=== PATIENT | female | born 1985 | race Caucasian/White ===

== ENCOUNTER 2019-01-02 15:03 | Emergency (ER) | payer MEDICAID ==
--- NOTE | 2019-01-02 15:17 | EDPHY ---
H & P Time Seen by Provider: 01/02/19 15:13 HPI/ROS: Chief complaint. Stroke activation HPI. 33-year-old female presents emergency department with complaint of headache for 2 days that she feels somewhat different than her usual migraines. She says it is different in severity. 1 hr ago she developed right throat numbness and right arm numbness. Maybe she feels that she has some right arm weakness. She also had some left lower extremity numbness but not now. She says she has been short of breath 3 days. She has had right-sided chest pain sharp and sometimes pressure for 3-4 weeks. No unusual leg pain or swelling. No leg weakness. No abdominal pain. ROS 10 systems were reviewed and negative with the exception of the elements mentioned in the history of present illness Past Medical/Surgical History: Migraines, WPW Social History: , nonsmoker, no alcohol Smoking Status: Former smoker Physical Exam: General Appearance: Female mild distress vital signs are stable Eyes: Pupils equal and round no pallor or injection. ENT, Mouth: Mucous membranes are moist. Respiratory: There are no retractions, lungs are clear to auscultation. Cardiovascular: Regular rate and rhythm. Gastrointestinal: Abdomen is soft and nontender, no masses, bowel sounds normal. Neurological: Awake and alert, sensory and motor exams grossly normal. Speech is normal. Cranial nerves intact. She does however have subjective decreased sensation to the right lower face. Subjective sensation decreased to the right arm. There is no pronator drift. Normal [id number]. No weakness to the legs and patient can hold each leg off the bed for 10 sec. No subjective sensory change to either leg Skin: Warm and dry, no rashes. Musculoskeletal: Neck is supple nontender. Extremities symmetrical, full range of motion. Psychiatric: Patient is oriented X 3, there is no agitation. Constitutional: Initial Vital Signs Temperature (C) 36.7 C 01/02/19 15:07 Heart Rate 84 01/02/19 15:07 Respiratory Rate 18 01/02/19 15:07 Blood Pressure 146/79 H 01/02/19 15:07 O2 Sat (%) 98 01/02/19 15:07 O2 Delivery Mode Room Air Allergies/Adverse Reactions: No Known Allergies Allergy (Verified 01/02/19 15:07) Home Medications: Medication Instructions Recorded Exedrin 01/02/19 Medical Decision Making - Diagnostics EKG Interpretation: EKG interpreted by me shows normal sinus rhythm normal interval and axis. QRS is normal there is no significant ST elevation or depression. No arrhythmia. The rate is 69 Imaging Results: Imaging Impressions Head CT 01/02/19 15:16 Impression: 1. No significant intracranial abnormality seen. If symptoms worsen, additional imaging may be necessary. Findings discussed with Monica Moody M.D. at 15:31 hour, 01/02/2019. Head CTA 01/02/19 15:44 Impression: Normal. Findings and recommendations discussed with MONICA MOODY at 4:37 PM hour, 01/02. Final report concurs with initial preliminary interpretation. Neck CTA 01/02/19 15:44 Impression: Normal. Note: All stenoses are calculated using NASCET Criteria. Findings and recommendations discussed with MONICA MOODY at 4:37 PM hour, 01/02. Final report concurs with initial preliminary interpretation. Brain MRI 01/02/19 15:45 Impression: 1. Mild left maxillary and sphenoid sinus disease, with small mucous retention cysts up to 1.2 cm. No fluid. 2. Otherwise, normal MRI brain, without contrast. 3. No acute infarct, acute hemorrhage, hydrocephalus, or mass effect. Findings and recommendations discussed with Emergency Department physician, Monica Moody M.D., at 1730 hours, on January 02, 2019. Final report concurs with initial preliminary interpretation. Noncontrast head CT reviewed by me and discussed with Radiology is normal CT-A head and neck are normal. Reviewed by me and discussed with . MRI brain reviewed by me and discussed with Dr. Siegel is normal Procedures: Stroke activation Patient declines medication for headache ED Course/Re-evaluation: I consulted discussed the case with for [facility]. He recommends CTA head and neck with follow-up of MRI. Recommends no tPA currently force sensory change. Should the patient developed weakness than re- evaluation consideration tPA 5:00 p.m. Patient returns from MRI. She would like medication for headache now. IV Toradol, Reglan, Benadryl is given Re-evaluation 6:25 p.m.. Patient is stable. Headache almost completely gone. Neurologically intact. She feels well to go home. Patient and I discussed imaging and lab results. We discussed treatment plan including criteria for return importance of follow-up and further evaluation. She expresses understanding and agreement Differential Diagnosis: Patient was a stroke activation. I considered CVA, TIA. This appears to be migraine variant - Data Points Laboratory Results: Laboratory Results 01/02/19 15:22 01/02/19 15:22 01/02/19 01/02/19 01/02/19 15:28 15:22 15:22 WBC RBC Hgb POC Hgb 14.6 gm/dL gm/dL (12.6-16.3) Hct POC Hct 43 % % (38-47) MCV MCH MCHC RDW Plt Count MPV Neut % (Auto) Lymph % (Auto) Weber % (Auto) Eos % (Auto) Baso % (Auto) Nucleat RBC Rel Count Absolute Neuts (auto) Absolute Lymphs (auto) Absolute Monos (auto) Absolute Eos (auto) Absolute Basos (auto) Absolute Nucleated RBC Immature Gran % Immature Gran # PT 13.1 SEC SEC (12.0-15.0) INR 1.03 (0.83-1.16) POC Sodium 142 mEq/L mEq/L (135-145) Sodium 139 mEq/L mEq/L (135-145) POC Potassium 3.1 mEq/L L mEq/L (3.3-5.0) Potassium 3.3 mEq/L L mEq/L (3.5-5.2) POC Chloride 104 mEq/L mEq/L (97-110) Chloride 103 mEq/L mEq/L (97-110) Carbon Dioxide 24 mEq/l mEq/l (22-31) POC Total CO2 25 mEq/L mEq/L (22-31) Anion Gap 12 mEq/L mEq/L (6-14) POC BUN 11 mg/dL mg/dL (7-23) BUN 12 mg/dL mg/dL (7-23) Creatinine 0.7 mg/dL mg/dL (0.6-1.0) POC Creatinine 0.6 mg/dL mg/dL (0.6-1.0) Estimated GFR > 60 Glucose 94 mg/dL mg/dL (70-100) POC Glucose 94 mg/dL mg/dL (70-100) Calcium 9.4 mg/dL mg/dL (8.5-10.4) 01/02/19 15:22 WBC 7.80 10^3/uL 10^3/uL (3.80-9.50) RBC 4.72 10^6/uL 10^6/uL (4.18-5.33) Hgb 14.2 g/dL g/dL (12.6-16.3) POC Hgb Hct 41.2 % % (38.0-47.0) POC Hct MCV 87.3 fL fL (81.5-99.8) MCH 30.1 pg pg (27.9-34.1) MCHC 34.5 g/dL g/dL (32.4-36.7) RDW 13.2 % % (11.5-15.2) Plt Count 194 10^3/uL 10^3/uL (150-400) MPV 11.2 fL fL (8.7-11.7) Neut % (Auto) 52.3 % % (39.3-74.2) Lymph % (Auto) 39.6 % % (15.0-45.0) Weber % (Auto) 6.3 % % (4.5-13.0) Eos % (Auto) 1.3 % % (0.6-7.6) Baso % (Auto) 0.4 % % (0.3-1.7) Nucleat RBC Rel Count 0.0 % % (0.0-0.2) Absolute Neuts (auto) 4.08 10^3/uL 10^3/uL (1.70-6.50) Absolute Lymphs (auto) 3.09 10^3/uL H 10^3/uL (1.00-3.00) Absolute Monos (auto) 0.49 10^3/uL 10^3/uL (0.30-0.80) Absolute Eos (auto) 0.10 10^3/uL 10^3/uL (0.03-0.40) Absolute Basos (auto) 0.03 10^3/uL 10^3/uL (0.02-0.10) Absolute Nucleated RBC 0.00 10^3/uL 10^3/uL (0-0.01) Immature Gran % 0.1 % % (0.0-1.1) Immature Gran # 0.01 10^3/uL 10^3/uL (0.00-0.10) PT INR POC Sodium Sodium POC Potassium Potassium POC Chloride Chloride Carbon Dioxide POC Total CO2 Anion Gap POC BUN BUN Creatinine POC Creatinine Estimated GFR Glucose POC Glucose Calcium Medications Given: Discontinued Medications Diphenhydramine HCl (Benadryl Injection) 12.5 mg IVP EDNOW ONE Stop: 01/02/19 15:45 Last Admin: 01/02/19 16:14 Dose: Not Given Diphenhydramine HCl (Benadryl Injection) 12.5 mg IVP EDNOW ONE Stop: 01/02/19 17:14 Last Admin: 01/02/19 17:29 Dose: 12.5 mg Sodium Chloride (Ns) 1,000 mls @ 0 mls/hr IV ONCE ONE; Wide Open PRN Reason: Protocol Stop: 01/02/19 15:45 Last Admin: 01/02/19 16:01 Dose: 1,000 mls Ketorolac Tromethamine (Toradol) 30 mg IVP EDNOW ONE Stop: 01/02/19 15:45 Last Admin: 01/02/19 16:14 Dose: Not Given Ketorolac Tromethamine (Toradol) 30 mg IVP EDNOW ONE Stop: 01/02/19 17:14 Last Admin: 01/02/19 17:32 Dose: 30 mg Metoclopramide HCl (Reglan Injection) 10 mg IVP EDNOW ONE Stop: 01/02/19 15:45 Last Admin: 01/02/19 16:14 Dose: Not Given Metoclopramide HCl (Reglan Injection) 10 mg IVP EDNOW ONE Stop: 01/02/19 17:14 Last Admin: 01/02/19 17:21 Dose: 10 mg Point of Care Test Results: Chemistry 01/02/19 15:28 POC Sodium 142 mEq/L mEq/L (135-145) POC Potassium 3.1 mEq/L L mEq/L (3.3-5.0) POC Chloride 104 mEq/L mEq/L (97-110) POC Total CO2 25 mEq/L mEq/L (22-31) POC BUN 11 mg/dL mg/dL (7-23) POC Creatinine 0.6 mg/dL mg/dL (0.6-1.0) POC Glucose 94 mg/dL mg/dL (70-100) ISTAT H&H 01/02/19 15:28 POC Hgb 14.6 gm/dL gm/dL (12.6-16.3) POC Hct 43 % % (38-47) Departure - Departure Disposition: Home, Routine, Self-Care Clinical Impression: Migraine variant with headache Condition: Good Instructions: Migraine Headache (ED) Additional Instructions: Continue regular medications. Return for worsening symptoms over the weekend Follow-up with your regular healthcare provider next Sunday or Sunday for re- evaluation of headaches. Referrals: NONE *PRIMARY CARE P,. [Primary Care Provider] - As per Instructions
[2019-01-02 15:32] LABS: PLATELET COUNT 194 10^3/uL (150-400)
[2019-01-02] MEDS ORDERED: NS 1,000 ML IV ONE (15:44)
[2019-01-02] MEDS ORDERED: KETOROLAC 30 MG/1 ML SDV IVP ONE ×2 (15:44→17:13)
[2019-01-02] MEDS ORDERED: METOCLOPRAMIDE 10 MG/2 ML VIAL IVP ONE ×2 (15:44→17:13)
[2019-01-02 15:46] LABS: INR 1.03 (0.83-1.16); PROTIME(PATIENT) 13.1 SEC (12.0-15.0)
[2019-01-02] MEDS ORDERED: IOPAMIDOL (ISOVUE 370) 100 ML BTL IV ONE (15:53)
--- NOTE | 2019-01-02 15:57 | CPEKG ---
Test Reason : OPEN Blood Pressure : / mmHG Vent. Rate : 069 BPM Atrial Rate : 066 BPM P-R Int : 146 ms QRS Dur : 084 ms QT Int : 394 ms P-R-T Axes : 055 076 055 degrees QTc Int : 422 ms Sinus rhythm Confirmed by Monica Moody ([id number]) on 01/02/2019 3:57:17 PM Referred By: MONICA MOODY Confirmed By:Monica Moody
[2019-01-02 18:39] VITALS: BP 107/65
== END 2019-01-02 18:44 | disposition home or self-care (01) ==
DX: G43.909 Migraine, unspecified, not intractable, without status migrainosus (principal); J32.4 Chronic pansinusitis; J34.89 Other specified disorders of nose and nasal sinuses; E86.9 Volume depletion, unspecified; Z87.891 Personal history of nicotine dependence
CPT/HCPCS: 70551-PN; 82435-PO; 82565-PO; 82947-PO; 84132-PO; 84295-PO; 84520-PO; 85014-ER; 96374; J1200; J1885; J2765; Q9967